=== PATIENT | female | born 1985 | race Caucasian/White ===

== ENCOUNTER 2017-09-03 12:46 | Outpatient (CLI) | payer OTHER ==
[2017-09-03] MEDS ORDERED: PRENATAL TABLE1 EACH PO (13:50)
== END 2017-09-03 18:00 | disposition home or self-care (01) ==
LOC: OBS/DEL 12:46
DX: O60.03 Preterm labor without delivery, third trimester (principal); O46.8X3 Other antepartum hemorrhage, third trimester; Z34.83 Encounter for supervision of other normal pregnancy, third trimester

== ENCOUNTER 2017-09-16 10:42 | Inpatient (IN) | payer OTHER ==
[~2017-09-16] VITALS: Ht 180.3 cm; Wt 92.5 kg
[~2017-09-16 10:42] MED LIST: PRENATAL TABLE1 EACH PO
== END 2017-09-19 09:35 | DRG 782 ==
LOC: OB/GYN 10:42 → LDR 10:42 → OB/GYN 09-17 13:43
PROC: BY4FZZZ Ultrasonography of Third Trimester, Single Fetus (ICD-10-PCS; principal; 2017-09-16)
PROC: 4A1HXCZ Monitoring of Products of Conception, Cardiac Rate, External Approach (ICD-10-PCS; 2017-09-16)
DX: O46.8X3 Other antepartum hemorrhage, third trimester (principal)

== ENCOUNTER 2017-09-27 06:40 | Inpatient (IN) | payer OTHER ==
[~2017-09-27] VITALS: Ht 180.3 cm; Wt 91.2 kg
== END 2017-10-03 17:34 | disposition home or self-care (01) | DRG 765 ==
LOC: LDR 06:40 → OB/GYN 06:40
PROVIDERS: Obstetrics & Gynecology
PROC: BY4FZZZ Ultrasonography of Third Trimester, Single Fetus (ICD-10-PCS; 2017-09-27)
PROC: 4A1HXCZ Monitoring of Products of Conception, Cardiac Rate, External Approach (ICD-10-PCS; 2017-09-27)
PROC: 4A033R1 Measurement of Arterial Saturation, Peripheral, Percutaneous Approach (ICD-10-PCS; 2017-09-30)
PROC: 10D00Z1 Extraction of Products of Conception, Low, Open Approach (ICD-10-PCS; principal; 2017-09-30 15:00)
DX: O60.14X0 Preterm labor third trimester with preterm delivery third trimester, not applicable or unspecified (principal); O45.8X3 Other premature separation of placenta, third trimester; Z3A.30 30 weeks gestation of pregnancy; Z37.0 Single live birth